=== PATIENT | male | born 1995 | race African-American/Black ===

== ENCOUNTER 2020-03-03 04:34 | Emergency (ER) | payer BC, OTHER ==
[~2020-03-03] VITALS: Ht 170.2 cm; Wt 75.0 kg
[~2020-03-03 04:34] MED LIST: NAPR-856 PO
[2020-03-03 04:38] VITALS: BP 137/75
[2020-03-03] MEDS ORDERED: KETOROLAC 30 MG/1 ML ONE (04:51)
[2020-03-03] MEDS ORDERED: KETOROLAC 30 MG/1 ML IM ONE (05:00)
--- NOTE | 2020-03-03 05:10 | NUR ---
patients leg is elevated and ice placed on ankle. pain medication given, patient tolerated it well
== END 2020-03-03 06:48 | disposition home or self-care (01) ==
LOC: ED 05:32
DX: S93.491A Sprain of other ligament of right ankle, initial encounter (principal); W18.39XA Other fall on same level, initial encounter; Y93.01 Activity, walking, marching and hiking; Y92.89 Other specified places as the place of occurrence of the external cause; Y99.8 Other external cause status
CPT/HCPCS: 73610; 96372; 99283; J1885